=== PATIENT | male | born 1945 | race Caucasian/White ===

== ENCOUNTER 2019-06-14 06:28 | Day surgery (SDC) | payer BC, MEDICARE ==
[2019-06-13 11:41] LABS: BASOPHILS # (AUTO) 0.1 X10'3 (0-0.2); BASOPHILS % (AUTO) 1.3 % (0-1); EOSINOPHILS # (AUTO) 0.2 X10'3 (0-0.9); EOSINOPHILS % (AUTO) 3.5 % (0-6); LYMPHOCYTES # (AUTO) 2.1 X10'3 (1.1-4.8); LYMPHOCYTES % (AUTO) 35.4 % (21-51); MEAN CORPUSCULAR HGB CONC 34.9 g/dL (33.0-36.5); MEAN CORPUSCULAR VOLUME 94.6 FL (78-98); MEAN PLATELET VOLUME 7.5 FL (7.4-10.4); MONOCYTES # (AUTO) 0.6 X10'3 (0-0.9); MONOCYTES % (AUTO) 10.8 % (2-12); NEUTROPHILS # (AUTO) 2.9 X10'3 (1.8-7.7); PRE OP HEMATOCRIT 48.7 % (42.0-52.0); PRE OP PLATELET COUNT 153 X10'3 (140-440); RED BLOOD COUNT 5.14 X10'6 (4.70-6.10)
[2019-06-13 11:55] LABS: ALBUMIN 3.4 G/DL (3.4-5.0); ALBUMIN/GLOBULIN RATIO 0.8 (1.1-1.5); ALKALINE PHOSPHATASE 72 IU/L (46-116); BLOOD UREA NITROGEN 23 MG/DL (7-18); BUN/CREATININE RATIO 22.3 (5.4-32.0); CALCIUM 8.9 MG/DL (8.5-10.1); CHLORIDE 106 MMOL/L (99-107); CREATININE 1.03 MG/DL (0.60-1.10); PRE OP ALT 36 U/L (30-65); PRE OP ANION GAP 8 (8-16); PRE OP AST 32 U/L (10-37); PRE OP BILIRUB, TOTAL 0.5 MG/DL (0.0-1.0); PRE OP GLUCOSE 98 MG/DL (70-104); PRE OP POTASSIUM 4.2 MMOL/L (3.4-5.1); PRE OP SODIUM 143 MMOL/L (135-145); TOTAL CARBON DIOXIDE 28.9 MMOL/L (24-32); TOTAL PROTEIN 7.7 G/DL (6.4-8.2); eGFR 70 ML/MIN
[2019-06-13 11:56] LABS: PRE OP PROTIME 10.3 SECONDS (9.0-12.0)
[~2019-06-14] VITALS: Ht 182.9 cm; Wt 128.0 kg
[~2019-06-14 06:28] MED LIST: ACET-812 PO; APIX5TAB3 PO; ASPI-611 PO; ATEN50TA PO; DOCUMENT DATE & TIME OF BETA-BLOCKER PO ONE; ESZO3TAB32 PO; MAGN400C PO; MEGA RED PO; NAPR220C15 PO; TRAM50TA2 PO; ceFAZolin 1GM/D5W- ADD-VANTAGE 50 ML IV ONE; cefazolin/dext.iso 2gm/100ml 100 ML IV ONE; famotidine 20mg tablet PO ONE; ringers solution, lacted 1,000 ML IV SCH
[2019-06-14 06:40] VITALS: BP 141/73
[2019-06-14] MEDS ORDERED: LIDOcaine 0.5% (5mg/ml) 50ml vial ONE (07:14)
[2019-06-14] MEDS ORDERED: BUPIVAcaine/PF 2.5mg/ml (0.25%) 10ml vial ONE (08:24)
[2019-06-14] MEDS ORDERED: MIDAZolam 1mg/ml 10ml vial ONE (08:45)
[2019-06-14] MEDS ORDERED: fentaNYL/PF 50MCG/1 ML 2ML syringe ONE (08:45)
[2019-06-14] MEDS ORDERED: BUPIVAcaine/PF 2.5mg/ml (0.25%) 10ml vial IJ ONE (09:09)
[2019-06-14 09:41] VITALS: BP 130/74
--- NOTE | 2019-06-14 09:41 | NUR ---
Received from OR via [facility] , accompanied by Anesthesiologist VAMSHI and report given by Anesthesiolgist. PATIENT WITH SPLINT TO RIGHT WRIST THAT IS CDI.20G PIV IN LEFT UE RUNNING LR AT 100. PATIENT WITH NO C.O. AT THIS TIME. Addendum: 06/14/19 at 0992 by El Ramírez RN, RN Amended: Links added.
[2019-06-14 09:51] VITALS: BP 112/74
[2019-06-14 10:01] VITALS: BP 110/78
--- NOTE | 2019-06-14 10:11 | NUR ---
ALL DC CRITERIA HAS BEEN MET. IV TAKEN OUT WITHOUT COMPLICATIONS. ALL INSTRUCTIONS COVERED AND ALL QUESTIONS ANSWERED. DRESSINGS CDI. OUT VIA WHEELCHAIR TO PERSONAL VEHICLE WHERE PATIENT WAS SECURED IN AND DRIVEN HOME BY FAMILY. SENT WITH ICE AND PATIENT DENIES PAIN. Addendum: 06/14/19 at 1014 by El Ramírez RN, RN Amended: Links added.
[2019-06-14 10:21] VITALS: BP 112/78
== END 2019-06-14 10:21 | disposition home or self-care (01) ==
LOC: PAS 06:28
PROVIDERS: ATTEND Orthopaedic Surgery Hand Surgery
DX: M65.311 Trigger thumb, right thumb (principal); M65.321 Trigger finger, right index finger; M65.331 Trigger finger, right middle finger; I10 Essential (primary) hypertension; E66.9 Obesity, unspecified; Z68.41 Body mass index [BMI] 40.0-44.9, adult; Z98.890 Other specified postprocedural states; Z96.652 Presence of left artificial knee joint; Z86.73 Personal history of transient ischemic attack (TIA), and cerebral infarction without residual deficits; Z86.718 Personal history of other venous thrombosis and embolism; Z79.899 Other long term (current) drug therapy; Z87.442 Personal history of urinary calculi; Z79.82 Long term (current) use of aspirin; Z87.891 Personal history of nicotine dependence; Z79.01 Long term (current) use of anticoagulants
CPT/HCPCS: 26055; 36415; 80053; 82948; 85025; 85610; 85730; 93005; J0690; J2001; J2250; J3010; J3490; A4215; J7120